=== PATIENT | female | born 1990 | race African-American/Black ===

== ENCOUNTER 2021-06-13 14:20 | Emergency (ER) | payer OTHER ==
[2021-06-13 15:08] VITALS: BP 150/87; PULSE 105; TEMP 98.2; BMI 34.4
[2021-06-13 17:35] LABS: URINE APPEARANCE CLEAR; URINE BILIRUBIN NEGATIVE (NEGATIVE); URINE COLOR YELLOW; URINE GLUCOSE (UA) NEGATIVE (NEGATIVE); URINE KETONE NEGATIVE (NEGATIVE); URINE LEUK ESTERASE NEGATIVE (NEGATIVE); URINE NITRITE NEGATIVE (NEGATIVE); URINE PROTEIN NEGATIVE (NEGATIVE); URINE UROBILINOGEN 0.2 mg/dL (0.2-1.0)
== END 2021-06-13 18:22 | disposition home or self-care (01) ==
LOC: JER 14:20
PROC: 3E023GC Introduction of Other Therapeutic Substance into Muscle, Percutaneous Approach (ICD-10-PCS; principal; 2021-06-13)
DX: A64 Unspecified sexually transmitted disease (principal)
CPT/HCPCS: 36415; 81003; 84703; 87086; 87491; 87591; 99284-25; C9803; U0003; U0005